=== PATIENT | female | born 1995 | race Caucasian/White ===

== ENCOUNTER 2018-11-11 09:08 | Outpatient (CLI) | payer OTHER, SELFPAY ==
--- NOTE | 2018-11-11 09:03 | DI.RAD_ITS ---
SYMPTOMS/DIAGNOSIS: RT MIDDLE FINGER PAIN RIGHT MIDDLE FINGER: Three views. No priors. No bone or joint abnormality is identified. The soft tissues are unremarkable. IMPRESSION: Negative right middle finger.
== END 2018-11-11 09:28 ==
PROVIDERS: PCP Nurse Practitioner; Visit Provider Physician Assistant
DX: M79.644 Pain in right finger(s) (principal)
CPT/HCPCS: 73140

== ENCOUNTER 2018-11-11 12:35 | Outpatient (CLI) | payer OTHER, SELFPAY ==
[2018-11-11 14:27] LABS: ESR 8 MM/HR (0-20)
[2018-11-12 11:20] LABS: Rheumatoid Factor <8 IU/mL (<12.5)
[2018-11-13 11:10] LABS: ANA Interpretation Negative (NEGAT)
== END 2018-11-11 12:55 ==
PROVIDERS: Physician Assistant; PCP Nurse Practitioner; Visit Provider Student in an Organized Health Care Education/Training Program
DX: M79.644 Pain in right finger(s) (principal)
CPT/HCPCS: 36415; 85652; 86038; 86431

== ENCOUNTER 2019-03-17 10:16 | Outpatient (REF) | payer OTHER, SELFPAY | END 2019-03-17 10:36 | LOC: LBN 10:16 | PROVIDERS: PCP Nurse Practitioner; Visit Provider Nurse Practitioner Women's Health | DX: R30.0 Dysuria (principal) | CPT/HCPCS: 87086 ==

== ENCOUNTER 2020-01-28 07:46 | Outpatient (CLI) | payer OTHER, SELFPAY ==
[2020-01-29 14:50] LABS: COVID-19 RT-PCR UVMMC Result Negative (Negative)
== END 2020-01-28 08:06 ==
PROVIDERS: PCP Nurse Practitioner Family; Visit Provider Otolaryngology Otolaryngology/Facial Plastic Surgery
DX: Z11.59 Encounter for screening for other viral diseases (principal)
CPT/HCPCS: U0003

== ENCOUNTER 2020-01-31 06:06 | Day surgery (SDC) | payer OTHER, SELFPAY ==
[2020-01-31] VITALS (7 sets, daily range): BP systolic 95–134; BP diastolic 43–68; PULSE 74–89; RESP 13–22; TEMP 36.3–36.8; O2SAT 96–100
[2020-01-31] MEDS: Lactated Ringers 1,000 ML 80 ML IV (06:41)
--- NOTE | 2020-01-31 07:20 | W.PM.DSUDISC ---
Discharge Plan Disposition Patient Disposition: HOME Condition: Good Discharge Details Reason For Visit: or Attending Provider: Samuel Grant Primary Care Provider: Stephanie Greene Home Meds and New Rx's Prescriptions: No Action buspirone 5 mg tablet 5 mg PO ONCE PRN (Reason: anxiety) RF: 0 Mirena 1 EACH intrauterine device 1 ea Intrauterine ONCE Qty: 1 RF: 0 acetaminophen [Tylenol Extra Strength] 500 mg Tablet 500 mg PO Q6H PRNRF: 0 Discharge Instructions Additional Instructions: see sheet Activity:: Activity as Tolerated Shower/Bathe:: 24 hours Diet:: As Tolerated DS: Diagnosis Discharge Diagnosis (1) Halitosis: Status: Acute (2) Tonsil stone: Status: Acute
--- NOTE | 2020-01-31 07:22 | ROE_ITS ---
Operative Note Operative Note DATE OF PROCEDURE: 01/31/20 PRE-OP DIAGNOSIS: chronic tonsils stones, halitosis POST-OP DIAGNOSIS: same PROCEDURE: tonsillectomy SURGEON: Samuel Grant ANESTHESIA: GETA ESTIMATED BLOOD LOSS: 1 PATHOLOGY: other (tonsils) COMPLICATIONS: None Patient was transported to: PACU Patient's condition: stable Procedure Description: Patient was brought back to the operating suite in stable condition placed supine operative table, timeout was taken to confirm preparation procedure. Patient was intubated in normal fashion. The table was rotated 90 degrees. Oral McIvor retractor was placed in the oral cavity, there was no evidence of submucosal clefting or bifid uvula. The retractor was suspended with an substitute crossing guard off the Lau stand. There was evidence of 2+ invaginated tonsils with significant halitosis. The curved Allis forceps was used to grab the right superior pole the tonsil after red rubber catheter was used to help suspend the soft palate. Dissection began in the superior pole of the peritonsillar fascia plane, dissection was carried out to the mid and lower pole with final amputation of the tonsil with suction cautery. Exact technique was performed on the left side there was scant bleeding less than 1 cc. Valsalva was performed there was no bleeding. Gastric contents were suctioned. Retractors were removed, there was no injury to dentition or the jaw. Patient was stable to PACU.
--- NOTE | 2020-01-31 07:50 | TONSIL_PTH ---
PATIENT: Elena Ratliff LOC: [facility] U#:[id number] AGE/SX: 24/F ROOM: RE01/31/[address]: Samuel Grant DO : 1995 BED: DIS: 01/31/2020 SPEC #: [id number] RECD: 01/31/20 12:18 STATUS: DANNY REQ #: [id number] СВЕТЛАНА: 01/31/20 07:[address]: Samuel Grant DEPT: Surgical Specimen RECD BY: Kay Dawson ENTERED: 01/31/20 12:19 SP TYPE: TONSIL OTHR DR: Stephanie Greene Tissues: 1 - TONSIL AGE 17 & OVER 2 - TONSIL AGE 17 & OVER Procedures: GROSS AND MICRO LEVEL 3 Comments: [id number]
[2020-01-31] MEDS: Oxymetazolone 0.05% SPRAY 15 ML BTL (07:59)
== END 2020-01-31 10:40 | disposition home or self-care (01) ==
PROVIDERS: PCP Nurse Practitioner Family; Visit Provider Otolaryngology Otolaryngology/Facial Plastic Surgery
PROC: (CPT 42826; principal; 2020-01-31 07:30)
DX: J35.8 Other chronic diseases of tonsils and adenoids (principal); R19.6 Halitosis
CPT/HCPCS: 42826; 88300; 88304; J0131; J1100; J1885; J2001; J2250; J2405

== ENCOUNTER 2020-11-20 11:49 | Outpatient (REF) | payer OTHER, SELFPAY ==
--- NOTE | 2020-11-20 11:30 | PAPFT_PTH ---
PATIENT: Elena Ratliff LOC: [facility] U#:[id number] AGE/SX: 25/F ROOM: RE11/20/[address]: FAUSTINA Faustin : 1995 BED: DIS: 11/20/2020 SPEC #: [id number] RECD: 11/20/20 18:13 STATUS: DANNY REMisa #: [id number] СВЕТЛАНА: 11/20/20 11:[address]: Rosa Johnson DEPT: [facility] Cytology RECD BY: Kay aDwson ENTERED: 11/20/20 18:14 SP TYPE: PAPFT OTHR DR: Stephanie Greene Tissues: 1 - CX/ENDOCX FOR PAP SMEARS Procedures: PAP THIN PREP/[facility] Screening Comments: [id number]
== END 2020-11-20 11:50 | disposition home or self-care (01) ==
LOC: LBN 11:49
PROVIDERS: PCP Nurse Practitioner Family; Visit Provider Nurse Practitioner Family
DX: Z12.4 Encounter for screening for malignant neoplasm of cervix (principal)
CPT/HCPCS: 88142

== ENCOUNTER 2020-11-24 04:00 | Outpatient (CLI) | payer OTHER, SELFPAY ==
--- NOTE | 2020-11-24 08:15 | DI.US_ITS ---
EXAM: US BREAST RT COMPLETE CLINICAL HISTORY: Increased nodulartity and tenderness in R breast,N63.10 TECHNIQUE: Ultrasound performed using standard protocol. COMPARISON: US PELVIS TRANSVAG from 03/07/2017 FINDINGS: Breast ultrasound was performed to evaluate a questionable palpable abnormality of the right breast. Note is made of dense breast tissue in the lateral aspect of the breast corresponding to the main ar ea of interest. There is no mass or cyst identified in this area. Whole breast scanning shows no ev idence of a mass or cyst. IMPRESSION: Negative right breast ultrasound. DATA REPOSITORY:
== END 2020-11-24 04:20 ==
PROVIDERS: PCP Nurse Practitioner Family; Visit Provider Nurse Practitioner Family
DX: R92.8 Other abnormal and inconclusive findings on diagnostic imaging of breast (principal)
CPT/HCPCS: 76642

== ENCOUNTER 2021-08-01 15:52 | Outpatient (REF) | payer OTHER, SELFPAY ==
[2021-08-01 15:34] LABS: *AMPHETAMINES SCREEN URINE Negative (Negative); *BARBITURATES SCREEN URINE Negative (Negative); *BENZODIAZEPINES SCREEN URINE Negative (Negative); Cannabinoids THC Negative (Negative); Cocaine Screen,Urine Negative (Negative); METHADONE URINE SCREEN Negative (Negative); OPIATES URINE SCREEN Negative (Negative)
[2021-08-01 15:36] LABS: Tricyclic Antidepressants Negative (Negative)
[2021-08-02 13:18] LABS: Chlamydia Result Negative (Negative); GC Result Negative (Negative)
[2021-08-04 12:31] LABS: Buprenorphine Negative ng/mL (Cutoff: 5.0); Norbuprenorphine Negative ng/mL (Cutoff: 2.5)
== END 2021-08-01 15:53 | disposition home or self-care (01) ==
LOC: LBN 15:52
PROVIDERS: PCP Nurse Practitioner Family; Visit Provider Advanced Practice Midwife
DX: Z34.91 Encounter for supervision of normal pregnancy, unspecified, first trimester
CPT/HCPCS: 80307; 87491; 87591; 87086; 87480; 87510; 87660

== ENCOUNTER 2021-08-15 02:52 | Outpatient (CLI) | payer OTHER, SELFPAY ==
[2021-08-15 09:21] LABS: Abs Immature Grans 0.08 10^3/uL (0.0-0.06); Absolute Basophil Count 0.02 10^3/uL (0.0-0.2); Absolute Eosinophil Count 0.05 10^3/uL (0.0-0.7); Absolute Monocyte Count 0.83 10^3/uL (0.1-0.8); Absolute Neutrophil Count 8.19 10^3/uL (1.2-6.7); Basophils % 0.2; Eosinophils % 0.5; HCT 39.7 % (36.0-46.0); HGB 13.1 g/dL (11.2-15.7); Immature Grans % 0.7; Kit/Specimen SENT; Lymphocytes % 14.9; MCH 28.9 pg (27.0-33.0); MCV 87.4 fL (80-95); MPV 9.6 fL (8.0-11.0); Monocytes % 7.7; Nucleated RBC 0 %; Platelet Count 198 10^3/uL (130-400); RBC 4.54 10^6/uL (3.93-5.22); RDW-SD 41.2 fL; WBC 10.77 10^3/uL (4.4-10.8)
[2021-08-15 09:33] LABS: Glucose,1 Hr (Glucola) 82 mg/dL (80-140)
[2021-08-16 08:48] LABS: Hepatitis B Surface Ag Negative (Negative)
[2021-08-16 09:34] LABS: HIV-1/2 Ag & Ab Screen Negative (Negative)
[2021-08-16 09:39] LABS: Hepatitis C Ab w Rflx HCV PCR Negative (Negative)
[2021-08-16 14:58] LABS: Syphilis Total Ab w/Reflex Nonreactive (Nonreactive)
[2021-08-16 15:37] LABS: Rubella IgG Ab (UVM) Positive (See Note)
[2021-08-16 15:40] LABS: Varicella IgG Antibody Positive (See Note)
[2021-08-22 18:15] LABS: Result Summary NEGATIVE; Specimen WB Whole Blood
== END 2021-08-15 02:53 | disposition home or self-care (01) ==
LOC: LBO 02:52
PROVIDERS: PCP Nurse Practitioner Family; Visit Provider Advanced Practice Midwife
DX: Z34.01 Encounter for supervision of normal first pregnancy, first trimester
CPT/HCPCS: 82950; 86787; 86803; 86850; 86900; 86901; 87340; 87389; 81220; 85025; 86762; 86780

== ENCOUNTER 2021-08-30 19:36 | Outpatient (REF) | payer OTHER, SELFPAY ==
[2021-08-31 12:31] LABS: COVID-19 RT-PCR UVMMC Result Negative (Negative)
== END 2021-08-30 19:37 | disposition home or self-care (01) ==
LOC: LBN 19:36
PROVIDERS: PCP Nurse Practitioner Family; Visit Provider Obstetrics & Gynecology Gynecology
DX: Z20.822 Contact with and (suspected) exposure to COVID-19 (principal)
CPT/HCPCS: U0003

== ENCOUNTER 2021-09-03 09:25 | Outpatient (REF) | payer OTHER, SELFPAY ==
[2021-09-03 21:11] LABS: COVID-19 RT-PCR UVMMC Result Negative (Negative)
== END 2021-09-03 09:26 | disposition home or self-care (01) ==
LOC: LBN 09:25
PROVIDERS: PCP Nurse Practitioner Family; Visit Provider Obstetrics & Gynecology Gynecology
DX: Z20.822 Contact with and (suspected) exposure to COVID-19 (principal)
CPT/HCPCS: U0003

== ENCOUNTER 2021-10-22 12:38 | Outpatient (CLI) | payer OTHER, SELFPAY ==
[2021-10-24 13:01] LABS: AFP 91.5 ng/mL; Calculated age at EDD 26 years; Cigarette smoking status non-Smoker; GA used in risk estimate Dates estimate; IVF Pregnancy No; Initial or repeat testing Initial testing; Insulin dependent diabetes No; Maternal Weight 259 lbs; Number of Fetuses 1; Physician Phone Number 802-748-7300; Prev Pregnancy w/NTD No; RECOMMENDED FOLLOW UP None.; Results Summary Normal risk
== END 2021-10-22 12:39 | disposition home or self-care (01) ==
LOC: LBO 12:39
PROVIDERS: PCP Nurse Practitioner Family; Visit Provider Obstetrics & Gynecology Gynecology
DX: Z34.92 Encounter for supervision of normal pregnancy, unspecified, second trimester (principal); Z3A.22 22 weeks gestation of pregnancy
CPT/HCPCS: 36415; 82105

== ENCOUNTER 2021-12-04 03:07 | Outpatient (CLI) | payer OTHER, SELFPAY ==
[2021-12-04 08:59] LABS: Lab Add On Test DONE
[2021-12-04 09:02] LABS: HCT 36.4 % (36.0-46.0); MCH 29.1 pg (27.0-33.0); MCV 88.1 fL (80-95); Platelet Count 208 10^3/uL (130-400); RBC 4.13 10^6/uL (3.93-5.22); RDW 13.4 % (11.7-14.6); RDW-SD 43.6 fL; WBC 15.64 10^3/uL (4.4-10.8)
[2021-12-04 09:07] LABS: Glucose,1 Hr (Glucola) 128 mg/dL (80-140)
== END 2021-12-04 03:08 | disposition home or self-care (01) ==
LOC: LBO 03:08
PROVIDERS: Obstetrics & Gynecology Gynecology; PCP Nurse Practitioner Family; Visit Provider Obstetrics & Gynecology
DX: Z34.92 Encounter for supervision of normal pregnancy, unspecified, second trimester (principal); Z3A.27 27 weeks gestation of pregnancy
CPT/HCPCS: 36415; 82950; 85027

== ENCOUNTER 2021-12-07 08:02 | Observation (INO) | payer OTHER, SELFPAY ==
[2021-12-07 08:20] VITALS: BP 126/60; PULSE 91; TEMP 37
[2021-12-07 08:26] VITALS: BP 126/60; PULSE 91
[2021-12-07 08:27] VITALS: BP 126/60; PULSE 91; RESP 14; TEMP 37
--- NOTE | 2021-12-07 11:17 | W.PM.OBNL1 ---
Date of service: 12/07/21 Time of Service: 11:17 Pelvic Exam Pooling: Negative Contractions Monitor Mode: None Fetus A Monitor: External (US) Heart Rate Baseline: 140 Variability: Moderate (6-25 BPM) Categories: Category I FHR Rhythm: Regular Accelerations: 15 X 15 Decelerations: None Amniotic Membrane Status: Intact Assessment and Plan Assessment and plan (1) : Status: Acute Assessment and plan: Patient is at 28 weeks gestation. She is status post fall on her abdomen this. She has no pain, bleeding, contractions, or leaking fluid. She had an appropriate surveillance. With monitoring for 4 hours. Category 1 strip throughout. There are no evidence of contractions. Her blood type is positive. She will continue her normal care. Precautions were given. She will be discharged home today. (2) Status post fall: Status: Acute Objective Temp Pulse Resp BP 98.6 F 91 H 14 126/60 12/07/21 08:27 12/07/21 08:27 12/07/21 08:27 12/07/21 08:27 Subjective Interval history since last seen: Patient seen on the center after having a fall this morning. She landed on her abdomen. She was concerned and overall appropriate. Baby's been moving and active. She has had no cramping. She has no bleeding or leaking fluid. She had a 4-hour monitoring session on the center.
--- NOTE | 2021-12-07 12:59 | W.OBNST ---
Date of service: 12/07/21 Time of Service: 13:00 NST Evaluation Reason for NST Reasons for Nonstress Test: OTHER, SEE COMMENT Reason for NST Other: well being after fall Gestational Age Gestational Age in Weeks and Days: 27 Weeks and 6Days Test and Monitor Explained Test/Monitor Explained: Test Explained and Monitor Explained Vital Signs Blood Pressure: 126/60 Pulse: 91 Temperature: 98.6 F NST Information Date on Monitor: 12/07/21 Time on Monitor: 08:05 Date off Monitor: 12/07/21 Time off Monitor: 12:00 Total Time on Monitor: 235 NST Evaluation Patient States Movement: Present FHR Baseline: 135 Variability: Moderate 6-25 bpm Accelerations: 10x10 Decelerations: None NST Results: Reactive Note NST Note Note: Reactive nonstress test. Category 1 strip over the course of 4 hours. NST Reviewed and Verified by: Rosio Cruz
[2021-12-07 13:01] VITALS: BP 126/60; PULSE 91; TEMP 37
== END 2021-12-07 12:00 | disposition home or self-care (01) ==
PROVIDERS: Admitting Provider Obstetrics & Gynecology; PCP Nurse Practitioner Family; Visit Provider Obstetrics & Gynecology
DX: O26.893 Other specified pregnancy related conditions, third trimester (principal); Z3A.28 28 weeks gestation of pregnancy; W19.XXXA Unspecified fall, initial encounter; Z04.3 Encounter for examination and observation following other accident
CPT/HCPCS: 59025; G0378

== ENCOUNTER 2021-12-11 14:42 | Outpatient (REF) | payer OTHER, SELFPAY ==
[2021-12-13 02:34] LABS: COVID-19 RT-PCR UVMMC Result Negative (Negative)
== END 2021-12-11 14:43 | disposition home or self-care (01) ==
LOC: LBN 14:42
PROVIDERS: PCP Nurse Practitioner Family; Visit Provider Obstetrics & Gynecology
DX: Z20.822 Contact with and (suspected) exposure to COVID-19 (principal)
CPT/HCPCS: U0003

== ENCOUNTER 2021-12-18 15:47 | Outpatient (REF) | payer OTHER, SELFPAY ==
[2021-12-19 00:33] LABS: COVID-19 RT-PCR UVMMC Result Negative (Negative)
== END 2021-12-18 15:48 | disposition home or self-care (01) ==
LOC: LBN 15:47
PROVIDERS: PCP Nurse Practitioner Family; Visit Provider Obstetrics & Gynecology
DX: Z20.822 Contact with and (suspected) exposure to COVID-19 (principal)
CPT/HCPCS: U0003

== ENCOUNTER → 2021-12-28 10:52 | Outpatient (CLI) | payer OTHER, SELFPAY ==
--- NOTE | 2021-12-28 10:15 | DI.US_ITS ---
Exam(s) US OB ANA WEIGHT EXAM: US OB ANA WEIGHT CLINICAL HISTORY: size greater than dates, Z34.03, ana/wt. TECHNIQUE: Transabdominal obstetrical ultrasound was performed. COMPARISON: US US OB 2-3 TRIMESTER from 10/05/2021 FINDINGS: There is a single viable intrauterine gestation with cardiac activity identified-162 bpm The fetus is presently in breech position . Amniotic fluid: There is a normal amount of amniotic fluid with an ANA of 13.8cm. Placental location: The placenta is posterior-fundal, grade 1,with no evidence of placenta previa. Dating parameters place this at approximately 31 weeks and 5 days gestational age, implying KAYLEE of February 25, 2020. BPD measures 31 weeks and 2 days HC measures 31 weeks and 4 days AC measures 31 weeks and 6 days FL measures 31 weeks and 6 days Estimated weight is 1838 gm-4 pounds 1 ounce Fetus is at the 70th percentile on the Hadlock scale. IMPRESSION:: Viable 3rd trimester gestation, as described above. DATA REPOSITORY:
== END ==
PROVIDERS: PCP Nurse Practitioner Family; Visit Provider Obstetrics & Gynecology Gynecology
DX: O26.843 Uterine size-date discrepancy, third trimester (principal); Z3A.31 31 weeks gestation of pregnancy
CPT/HCPCS: 76816

== ENCOUNTER 2022-01-25 00:55 | Outpatient (CLI) | payer OTHER, SELFPAY ==
--- NOTE | 2022-01-25 08:45 | DI.US_ITS ---
Exam(s) US OB ANA WEIGHT EXAM: US OB ANA WEIGHT CLINICAL HISTORY: growth,obesity,O99.213. TECHNIQUE: Transabdominal obstetrical ultrasound performed. COMPARISON: US US OB ANA WEIGHT from 12/28/2021 FINDINGS: Transabdominal obstetrical ultrasound performed. FINDINGS: Number of fetuses: One. position: Breech Placental location: Fundal and posterior placenta. No evidence of previa. BIOMETRIC DATA: BPD: 84 mm = 34 weeks HC: 309 mm = 34 weeks 3 days AC: 306 mm = 34 weeks 4 days FL: 60 mm = 35 weeks 1 day EFW: 2478 grms 40% Composite Age: 34 weeks 4 days EDC: 03/04/2022 Heart Rate: 157BPM Amniotic fluid index: 16.3 cm. Visually, amount of fluid is within normal limits. IMPRESSION: 1. Single live intrauterine gestation as above. 2. Estimated weight is 2478gms. This is the 40 percentile. 3. Amniotic fluid index is 16.3 cm. Visually within normal limits. DATA REPOSITORY:
[2022-01-25 16:08] VITALS: BP 115/56; PULSE 88; TEMP 36.8
[2022-01-25 16:11] VITALS: BP 115/56; PULSE 88
[2022-01-25 16:24] VITALS: BP 114/59; PULSE 86
--- NOTE | 2022-01-30 14:52 | W.OBNST ---
Date of service: 01/30/22 Time of Service: 14:52 NST Evaluation Reason for NST Reasons for Nonstress Test: OTHER, SEE COMMENT Reason for NST Other: well-being. Gestational Age Gestational Age in Weeks and Days: 27 Weeks and 6Days Test and Monitor Explained Test/Monitor Explained: Test Explained, Monitor Explained and Patient Verbalized Understanding Vital Signs Blood Pressure: 115/56 Pulse: 88 Temperature: 98.2 F NST Information Date on Monitor: 01/25/22 Time on Monitor: 16:07 Date off Monitor: 01/25/22 Time off Monitor: 16:33 Total Time on Monitor: 26 NST Interventions: None NST Evaluation Patient States Movement: Present FHR Baseline: 130 Variability: Moderate 6-25 bpm Accelerations: 15x15 Decelerations: None NST Results: Reactive Note NST Note Note: Reviewed NST. I reviewed her BMI prior to her . It was < 40. For that reason I advised pt that repeat NSTs are not warranted at this time. NST Reviewed and Verified by: Radha Delgado
[2022-01-30 14:55] VITALS: BP 115/56; PULSE 88; TEMP 36.8
== END 2022-01-25 16:35 | disposition home or self-care (01) ==
LOC: DI 00:55 → OBS 16:01
PROVIDERS: PCP Nurse Practitioner Family; Visit Provider Obstetrics & Gynecology
DX: O99.213 Obesity complicating pregnancy, third trimester (principal); Z3A.34 34 weeks gestation of pregnancy
CPT/HCPCS: 76816

== ENCOUNTER 2022-01-25 10:45 | Outpatient (CLI) | payer OTHER, SELFPAY ==
--- NOTE | 2022-01-25 18:38 | W.OBNST ---
Date of service: 01/25/22 Time of Service: 17:38 NST Evaluation Reason for NST Reasons for Nonstress Test: OTHER, SEE COMMENT (BMI greater than 40) Gestational Age Gestational Age in Weeks and Days: 34 Weeks and 6Days
== END 2022-01-25 10:46 | disposition home or self-care (01) ==
LOC: BCD 02-07 10:46
PROVIDERS: PCP Nurse Practitioner Family; Visit Provider Obstetrics & Gynecology Gynecology
DX: O26.893 Other specified pregnancy related conditions, third trimester (principal); Z3A.27 27 weeks gestation of pregnancy
CPT/HCPCS: 59025

== ENCOUNTER 2022-01-29 08:19 | Outpatient (CLI) | payer OTHER, SELFPAY | END 2022-01-29 16:19 | LOC: BCD 08:20 → OBS 15:53 | PROVIDERS: PCP Nurse Practitioner Family; Visit Provider Obstetrics & Gynecology ==

== ENCOUNTER 2022-02-01 16:18 | Outpatient (REF) | payer OTHER, SELFPAY ==
[2022-02-01 17:18] LABS: *AMPHETAMINES SCREEN URINE Negative (Negative); *BARBITURATES SCREEN URINE Negative (Negative); *BENZODIAZEPINES SCREEN URINE Negative (Negative); Cannabinoids THC Negative (Negative); Cocaine Screen,Urine Negative (Negative); METHADONE URINE SCREEN Negative (Negative); OPIATES URINE SCREEN Negative (Negative)
[2022-02-01 17:21] LABS: Tricyclic Antidepressants Negative (Negative)
[2022-02-07 09:42] LABS: Buprenorphine Negative ng/mL (Cutoff: 5.0); Norbuprenorphine Negative ng/mL (Cutoff: 2.5)
== END 2022-02-01 16:19 | disposition home or self-care (01) ==
LOC: LBN 16:18
PROVIDERS: PCP Nurse Practitioner Family; Visit Provider Obstetrics & Gynecology
DX: Z34.93 Encounter for supervision of normal pregnancy, unspecified, third trimester (principal); Z3A.35 35 weeks gestation of pregnancy; Z36.85 Encounter for antenatal screening for Streptococcus B
CPT/HCPCS: 80307; 87081

== ENCOUNTER 2022-02-04 08:48 | Outpatient (REF) | payer OTHER, SELFPAY ==
[2022-02-04 09:32] LABS: Source Nasal/Nares
[2022-02-04 14:57] LABS: COVID-19 PCR Negative (Negative)
== END 2022-02-04 08:49 | disposition home or self-care (01) ==
LOC: LBN 08:48
PROVIDERS: PCP Nurse Practitioner Family; Visit Provider Obstetrics & Gynecology
DX: Z20.822 Contact with and (suspected) exposure to COVID-19 (principal); Z01.818 Encounter for other preprocedural examination
CPT/HCPCS: 87635

== ENCOUNTER 2022-02-06 06:00 | Observation (INO) | payer OTHER, SELFPAY ==
--- NOTE | 2022-02-01 16:41 | HPE_ITS ---
Date of service: 02/01/22 Time of Service: 16:41 Assessment and Plan Assessment and plan (1) : Status: Acute (2) Obesity affecting in third trimester, antepartum: Status: Acute (3) Close exposure to COVID-19 virus: Status: Acute (4) Breech presentation with problem: Status: Acute Assessment and plan: Patient will undergo external cephalic version attempt on 02/01/2022. Successful, will proceed as normal with anticipation of spontaneous labor and vaginal delivery. If unsuccessful, scheduled primary section for breech after 39 weeks would be appropriate. Full informed consent was obtained. OB-HPI Labor/Delivery History of Present Illness Reason for Visit: PRE-CASSIDY Chief Complaint: Other (Breech presentation, external cephalic version). KAYLEE Calculator Estimated Delivery Date Method Current WG Current Estimate 03/02/22 LMP (Certain) 35w 6d Other Estimates 02/27/22 Ultrasound #1 36w 2d 03/05/22 Ultrasound #2 35w 3d History of Present Expected Delivery Route/Plan - elects MD HERNANDEZ - Justin, his first child also BG Specific Issues/Plan 1. Elevated BMI. 1st trimester Glucola: 89. Nl 3rd trimester Glucola. 01/25/2022. EFW 43 %. Normal ANA. Breech 2. Constipation, pre-existing . Colace, Miralax, fluids/fiber working OK. 3. Flat nipples, offer third trimester referral to lactation 4. Panorama LR X 5, female. CF neg. Declined SMA. 5. Vaccinated and boosted. Partner Aren vaccinated x1 dose (previously had Covid) 6. choroid plexus cyst seen at 19 wk scan; in setting of nml cfDNA, no f/up indicated Narrative: Patient is a 26-year-old primigravida who will be 36 weeks and 3 days on 02/06/2022. She is known to have a breech presentation on ultrasound at the bedside. vertex is in the left upper quadrant with adequate fluid and posterior placenta. Risk benefits and alternatives of external cephalic version with possible need for emergent section were all described to the patient in full obtained. She is agreeable to attempted external cephalic version today. Informed Consent Informed Consent: Risk,Benefits,Alternatives Discussed and Other (External cephalic version) Review of Systems Constitutional Constitutional: Reports as per HPI and Reports system reviewed and no additional complaints, except as documented Eyes Eyes: Reports system reviewed and no additional complaints, except as documented ENT Ears, Nose, Mouth, and Throat: Reports system reviewed and no additional complaints, except as documented Cardiovascular Cardiovascular: Reports system reviewed and no additional complaints, except as documented, Denies rapid heart rate and Denies irregular heart rhythm Respiratory Respiratory: Reports system reviewed and no additional complaints, except as documented, Denies chest congestion and Denies cough Gastrointestinal Gastrointestinal: Reports system reviewed and no additional complaints, except as documented and Denies abdominal pain Genitourinary Genitourinary: Reports system reviewed and no additional complaints, except as documented Musculoskeletal Musculoskeletal: Reports system reviewed and no additional complaints, except as documented Psychiatric Psychiatric: Reports system reviewed and no additional complaints, except as documented PFSH All Active Problems (Updated 02/01/22 @ 16:45 by Rosio Cruz DO) Breech presentation with problem (Acute) Obesity affecting in third trimester, antepartum (Acute) Encounter for supervision of normal first , third trimester (Acute) Status post fall (Acute) Sciatic pain (Acute) Close exposure to COVID-19 virus (Acute) (Acute) Positive test (Acute) Thrombosed external hemorrhoid (Acute) Medical History (Updated 02/01/22 @ 16:45 by Rosio Cruz DO) Contraception, device intrauterine placed 09/2015. Hemorrhagic cyst of left ovary noted on pelvic us eval of acute episode of L>R sided pelvic pain. Surgical History (Updated 08/01/21 @ 14:16 by Elise Meyer CNM) Hx of tonsillectomy 01/31/2020 Tooth extraction (08/25/12) wisdom teeth Family History (Updated 08/01/21 @ 14:19 by Elise Meyer CNM) Father Degenerative disc disease Hyperlipidemia Hypertension Maternal Grandmother Hypertension Maternal Aunt Diabetes Maternal Uncle Diabetes Paternal Grandfather Celiac disease Social History Smoking/Tobacco Use Status: Never Smoking risk assessment performed?: Yes Alcohol Intake: current Alcohol Intake frequency: a few times a month Drug use: Never Substance use type: does not use current occupation: [employer] Sexually active: Yes Do you think of yourself as: straight/heterosexual What is your relationship status?: living with partner Panel score (0-1 are the most socially isolated patients): 1 Special miri needs: No Seatbelt use: always Do you feel safe at home: Yes Do you feel safe in your relationship?: Yes Victim of physical abuse: No Victim of emotional abuse: No Victim of sexual abuse: No Female Reproductive History Menstrual control method: progestin IUCD History History 1 Para 0 Hx # Term Pregnancies 0 Multiple births 0 Hx # Pregnancies 0 Ectopic pregnancies 0 AB induced 0 Hx Number of Living Children 0 AB spontaneous 0 Meds Allergies and Home Medications Allergies Allergy/AdvReac Type Severity Reaction Status Date / Time erythromycin base AdvReac Verified 02/01/22 15:48 [From Erythrocin] Home Medications Medication Instructions Recorded Confirmed Type acetaminophen 500 mg tablet 500 mg PO Q6H PRN 01/27/20 01/29/22 History (Tylenol Extra Strength) prenat.vits,rex,exc-[id number]-[id number] 1 tab PO DAILY 11/20/20 01/29/22 History fexofenadine 60 mg tablet (Pastora 60 mg PO DAILY PRN 07/17/21 01/29/22 History Allergy) docusate sodium 100 mg capsule 100 mg PO BID PRN 08/01/21 01/29/22 History polyethylene glycol 3350 17 17 g PO DAILY PRN 08/01/21 01/29/22 History gram/dose oral powder aspirin 81 mg tablet,delayed 81 mg PO DAILY 08/29/21 01/29/22 History release (Adult Aspirin Regimen) fluticasone propionate 50 2 spray intranasal DAILY 02/01/22 History mcg/actuation nasal spray,suspension (Flonase Allergy Relief) Exam Physical Exam Vital Signs Reviewed: Yes Constitutional Constitutional: no acute distress Detailed Labor and Delivery Exam Dilation: 0 Effacement (%): 20 station: -4 Position: Other (Breech) Daniels Score: Cervical Points Exam 0 1 2 3 Dilation Closed 1-2cm 3-4 cm 5-6cm Effacement 0-30% 40-50% 60-70% 80% Consistency Firm Medium Soft Station -3 -2 -1,0 +1,+2 Position Posterior Mid Anterior HEENT Exam HEENT Exam: Normal Neck Exam Neck Exam: Normal Respiratory Exam Respiratory Exam: Normal Cardiovascular Exam Cardiovascular Exam: Normal Detailed Extremities Exam Extremities: Present edema (1+ bilateral); Absent Fifi's sign or tenderness Psychiatric Exam Psychiatric Exam: Normal Risk Assessment Risk for Shoulder Dystocia Historical/Initial OB: POSITIVE FOR: Pre- BMI>30; NEGATIVE FOR: Pelvic Abnormality, Previous Shoulder Dystocia or Previous Macrosomia Date/Initial: 08/01/21: Risk for Pre-Eclampsia Yes, if one or more: NEGATIVE FOR: Hx Pre-E/Gest HTN, Chronic HTN, Multiple Gestation, Pre-gestational DM, Renal Disease, Systemic Lupus or APA Syndrome Yes, if 2 or more: POSITIVE FOR: Nulliparity and BMI>30; NEGATIVE FOR: Age>= 35 yrs, >10yr btwn pregnancies, ethinicty, Mother/Sister w/ Pre-E or Previous IUGR Risk for Post- Hemorrhage Initial: NEGATIVE FOR: Multiple Gestation, Previous PPH, Known Clotting Deficiency, Grand Multiparity or Anticoagulation Risks Reviewed Risks Reviewed Upon Admission: Yes
[2022-02-06 06:00] VITALS: BP 116/60; PULSE 98; RESP 20; TEMP 36.7; O2SAT 97
[2022-02-06 06:40] LABS: HGB 12.4 g/dL (11.2-15.7); MCH 29.2 pg (27.0-33.0); MCHC 34.4 % (32.0-36.0); MCV 85 fL (80-95); MPV 10.3 fL (8.0-11.0); Platelet Count 185 10^3/uL (130-400); RBC 4.25 10^6/uL (3.93-5.22); RDW 14.1 % (11.7-14.6); RDW-SD 43.1 fL; WBC 15.11 10^3/uL (4.4-10.8)
[2022-02-06] MEDS: Terbutaline 1 MG/ML VIAL 0.25 MG SC (07:39)
--- NOTE | 2022-02-06 08:21 | PROC.BLANK_ITS ---
Date of service: 02/06/22 Time of Service: 08:21 Version Note Version Note DATE OF PROCEDURE: 02/06/22 PRE-OP DIAGNOSES: Breech presentation POST-OP DIAGNOSES: same (persistant breech) PROCEDURE: Attempted External Cephalic version SURGEON: Rosio Cruz [employer] Analyst: Radha Delgado Complications: None Patient's condition: stable Indications: Breech presentation at 36+ weeks Findings: Mireya breech presentation pre and post procedure Procedure Description: After full informed consent was obtained, patient was placed on the monitor and having a category 1, reactive nonstress test with no particular uterine activity. Ultrasound at bedside confirmed mireya breech presentation with head in the epigastrium and breech low in the pelvis. Back on the maternal left. After subcutaneous dose of terbutaline, 1 time given attempt was made to elevate the breech out of the pelvis and rotate the head in a counterclockwise fashion. First attempt was unsuccessful. Second attempt performed and again unsuccessful. heart tones throughout the procedure were 140. Post procedure also 140 with good accelerations, moderate variability and overall category 1. Patient understands the implication of persistent breech presentation which would be that if at term, baby remains breech she would undergo a primary section. No complications were noted. All questions were answered. Patient will be seen for routine obstetric care in the office in 1 week as scheduled Pre/Post Procedure NST Pre-Procedure NST Time on Monitor: 26
== END 2022-02-06 09:21 | disposition home or self-care (01) ==
PROVIDERS: Admitting Provider Obstetrics & Gynecology; PCP Nurse Practitioner Family; Visit Provider Obstetrics & Gynecology
DX: O32.1XX0 Maternal care for breech presentation, not applicable or unspecified (principal); O99.213 Obesity complicating pregnancy, third trimester; E66.9 Obesity, unspecified; O99.613 Diseases of the digestive system complicating pregnancy, third trimester; O22.43 Hemorrhoids in pregnancy, third trimester; Z3A.36 36 weeks gestation of pregnancy; K59.00 Constipation, unspecified
CPT/HCPCS: 59412; 85027; 86850; 86900; 86901; 87635; G0378

== ENCOUNTER 2022-02-26 03:33 | Outpatient (CLI) | payer OTHER, SELFPAY ==
[2022-02-26 08:40] LABS: Abs Immature Grans 0.12 10^3/uL (0.0-0.06); Absolute Basophil Count 0.04 10^3/uL (0.0-0.2); Absolute Eosinophil Count 0.11 10^3/uL (0.0-0.7); Basophils % 0.3; Eosinophils % 0.8; HCT 37.7 % (36.0-46.0); HGB 13.1 g/dL (11.2-15.7); Immature Grans % 0.8; Lymphocytes % 14.4; MCH 29.6 pg (27.0-33.0); MCHC 34.7 % (32.0-36.0); MCV 85 fL (80-95); MPV 10.5 fL (8.0-11.0); Monocytes % 7.5; Neutrophils % 76.2; Platelet Count 194 10^3/uL (130-400); RBC 4.42 10^6/uL (3.93-5.22); RDW-SD 43.5 fL; WBC 14.21 10^3/uL (4.4-10.8)
[2022-02-26 08:47] LABS: Absolute Lymphocyte Count 2.05 10^3/uL (1.2-3.4); Absolute Monocyte Count 1.07 10^3/uL (0.1-0.8); Absolute Neutrophil Count 10.83 10^3/uL (1.2-6.7)
[2022-02-26 09:08] LABS: Source Nasal/Nares
[2022-02-26 13:58] LABS: COVID-19 PCR Negative (Negative)
== END 2022-02-26 03:34 | disposition home or self-care (01) ==
LOC: LBO 03:34
PROVIDERS: PCP Nurse Practitioner Family; Visit Provider Obstetrics & Gynecology
DX: O32.1XX0 Maternal care for breech presentation, not applicable or unspecified (principal); Z3A.39 39 weeks gestation of pregnancy; Z01.818 Encounter for other preprocedural examination; Z01.812 Encounter for preprocedural laboratory examination; Z20.822 Contact with and (suspected) exposure to COVID-19
CPT/HCPCS: 36415; 86850; 86900; 86901; 87635; 85025

== ENCOUNTER 2022-02-26 03:34 | Outpatient (CLI) | payer OTHER, SELFPAY | END 2022-02-26 03:35 | disposition home or self-care (01) | LOC: LBO 03:34 | PROVIDERS: PCP Nurse Practitioner Family; Visit Provider Obstetrics & Gynecology ==

== ENCOUNTER 2022-02-27 06:00 | Inpatient (IN) | payer OTHER, SELFPAY ==
--- NOTE | 2022-02-26 11:28 | W.ANESPRE ---
General Info Date of Service Date Performed: 02/27/22 Height: 5 ft 6 in Weight: 127 kg Body Mass Index (BMI): 45.1 Surgical Procedure: Operation Date: 02/27/22 07:40 Proposed Procedure Side Surgeon p Section Rosio Cruz DO Meds Allergies and Home Medications Allergies Allergy/AdvReac Type Severity Reaction Status Date / Time erythromycin base AdvReac Verified 02/26/22 06:43 [From Erythrocin] Home Medication Medication Instructions Recorded acetaminophen 500 mg tablet 500 mg PO Q6H PRN 01/27/20 (Tylenol Extra Strength) prenat.vits,rex,ics-ynzf-svjwc 1 tab PO DAILY 11/20/20 fexofenadine 60 mg tablet (Pastora 60 mg PO DAILY PRN 07/17/21 Allergy) docusate sodium 100 mg capsule 100 mg PO BID PRN 08/01/21 polyethylene glycol 3350 17 17 g PO DAILY PRN 08/01/21 gram/dose oral powder aspirin 81 mg tablet,delayed 81 mg PO DAILY 08/29/21 release (Adult Aspirin Regimen) fluticasone propionate 50 2 spray intranasal DAILY 02/01/22 mcg/actuation nasal spray,suspension (Flonase Allergy Relief) Current Visit Medications: Current Medications Generic Name Dose Route Start Last Admin Trade Name Freq PRN Reason Stop Dose Admin Citric Acid/Sodium Citrate 30 ml 02/27/22 06:00 Sodium Citrate 30 Ml Cup PO PREOP IFEANYI Sodium Chloride 500 mls @ 0 mls/hr 02/27/22 06:00 Saline 500ml Bag IV PRN PRN As Directed Ringer's Solution 1,000 mls @ 200 mls/hr 02/27/22 06:00 IV INFUSION IFEANYI Cefazolin Sodium/Dextrose 2 gm in 50 mls @ 100 mls/hr 02/27/22 09:00 Ancef Duplex IVPB PREOP IFEANYI Azithromycin 500 mg/ Sodium 250 mls @ 250 mls/hr 02/27/22 06:00 Chloride IVPB PREOP IFEANYI IV Miscellaneous Supplies 1 each 02/27/22 06:45 Iv Access IV DIRECTED IFEANYI Sodium Chloride 0 ml 02/27/22 06:00 Normal Saline Flush 10 Ml Syr IVP PRN PRN PFSH Active Problems Active Problems: Problem Status Onset Code Group beta Strep positive B95.1 Breech presentation with problem O32.1XX0 Obesity affecting in third trimester, antepartum O99.213 Encounter for supervision of normal first , third trimester Z34.03 Status post fall Z91.81 Sciatic pain M54.30 Close exposure to COVID-19 virus Z20.822 Z34.90 Positive test Z32.01 Thrombosed external hemorrhoid K64.5 Medical History Medical History (Updated 02/05/22 @ 09:09 by Rosio Cruz DO) Contraception, device intrauterine placed 09/2015. Hemorrhagic cyst of left ovary noted on pelvic us eval of acute episode of L>R sided pelvic pain. Surgical History Surgical History (Updated 08/01/21 @ 14:16 by Elise Meyer CNM) Hx of tonsillectomy 01/31/2020 Tooth extraction (08/25/12) wisdom teeth Tobacco Smoking/Tobacco Use Status: Never Alcohol Alcohol Intake: current Alcohol intake frequency: a few times a month Substance Use Substance use: Never Substance use type: does not use Prental History History 1 Para 0 Hx # Term Pregnancies 0 Multiple births 0 Hx # Pregnancies 0 Ectopic pregnancies 0 AB induced 0 Hx Number of Living Children 0 AB spontaneous 0 Vital Signs and Lab Results Vital Signs Most Recent Vital Signs in EMR: Temp Pulse Resp BP Pulse Ox 37.3 C 99 H 18 133/71 96 02/27/22 06:21 02/27/22 06:21 02/27/22 06:21 02/27/22 06:21 02/27/22 06:21 Lab Results Blood Type / Crossmatch: Patient ABO/Rh AB Positive 02/26/22 Antibody Screen NEGATIVE 02/26/22 Complete Blood Count: White Blood Count 14.21 10^3/uL (4.4-10.8) H 02/26/22 08:19 Red Blood Count 4.42 10^6/uL (3.93-5.22) 02/26/22 08:19 Hemoglobin 13.1 g/dL (11.2-15.7) 02/26/22 08:19 Hematocrit 37.7 % (36.0-46.0) 02/26/22 08:19 Platelet Count 194 10^3/uL (130-400) 02/26/22 08:19 Complete Metabolic Panel: No Data to Display Liver Function Panel: No Data to Display Coagulation Panel: No Data to Display Cardiac Panel: No Data to Display Arterial Blood Gas: No Data to Display Venous Blood Gas: No Data to Display Pancreas Panel: No Data to Display Thyroid Panel: No Data to Display Infectious Disease: Coronavirus (COVID-19)(PCR) Negative (Negative) 02/26/22 09:00 Coronavirus 2019 Source Nasal/Nares 02/26/22 09:00 Blood Cultures: No Data to Display Toxicology Panel: Urine Amphetamines Screen Negative (Negative) 02/01/22 16:00 Urine Benzodiazepines Screen Negative (Negative) 02/01/22 16:00 Urine Barbiturates Screen Negative (Negative) 02/01/22 16:00 Urine Cocaine Screen Negative (Negative) 02/01/22 16:00 Urine Methadone Screen Negative (Negative) 02/01/22 16:00 Urine Opiates Screen Negative (Negative) 02/01/22 16:00 Ur Tricyclic Antidepressants Screen Negative (Negative) 02/01/22 16:00 Ur Tetrahydrocannabinol (THC) Scrn Negative (Negative) 02/01/22 16:00 Panel: No Data to Display Anesthesia Assessment and Plan Anesthesia History Personal History: No History of Anesthesia Complications Family History: No Family History of Anesthesia Complications Exercise Tolerance Exercise Tolerance: Metabolic Equivalents>4 Cardiac & Pulmonary Exam Cardiac Exam: Normal S1/S2 Heart Sounds Pulmonary Exam: Clear Bilateral Breath Sounds Implantable Cardiac Device Does patient have a Pacemaker or an ICD?: No Airway Exam Known Difficult Airway: No Mallampati Class: 3 Mouth Opening: Normal (> 3cm) Thyromental Distance: Greater than 3 cm Neck Range of Motion: Full ROM Neck Circumference: Normal Teeth Condition: Normal Dentition ASA Classification ASA Score: ASA 3 Emergency Case?: No NPO Status NPO Status: NPO Clears >2 hours, Solids >8 hours Status Status: Other Anesthesia Plan Resuscitation Status: Full Code Anesthesia Technique: Spinal Anesthesia Airway Planned: Natural Airway Pain Management: Intrathecal Analgesia Monitors Used: Standard Monitors Preoperative Comments:: 26 yo f for c section due to breech presentation. Sig PMHx: denies major. Plan: spinal with IT morphine for post op pain control.
[2022-02-27] VITALS (17 sets, daily range): BP systolic 104–133; BP diastolic 45–71; PULSE 66–99; RESP 16–20; TEMP 36.6–37.3; O2SAT 95–98; BMI 45.1
[2022-02-27] MEDS: AZITHROMYCIN 500 MG in Normal Saline 250 ML 250 MG IVPB (06:44)
[2022-02-27] MEDS: Lactated Ringers 1,000 ML 200 ML IV (06:45)
[2022-02-27] MEDS: Sodium Citrate 30 ML CUP PO (06:45)
[2022-02-27] MEDS: Lactated Ringers 1,000 ML 30 ML IV (07:34)
[2022-02-27] MEDS: ceFAZolin 2 GM/50 ML BAG IVPB (07:42)
[2022-02-27] MEDS: Oxytocin/Normal Saline 30 UNIT/500 ML BAG 95 UNITS IV (08:06)
--- NOTE | 2022-02-27 08:44 | W.PM.OBCSECT ---
Date of service: 02/27/22 Time of Service: 08:44 Operative Note Operative Note Delivery Method: Scheduled (Breech at term) and Primary NTSV>37 Weeks: No DATE OF PROCEDURE: 02/27/22 PRE-OP DIAGNOSES: Term , Breech POST-OP DIAGNOSES: same PROCEDURE: Primary low transverse section for breech Assisting Surgeon: Rosio Cruz Critical Care Cns: Radha Delgado Anesthesia: local and spinal Estimated blood loss (mL): 500 Pathology: none sent Complications: None Patient was transported to: floor Patient's condition: stable Indications: Term , breech presentation, failed external cephalic version Findings: Viable female infant delivered from the mireya breech presentation. Normal ovaries, tubes, and uterus. Small, 3 cm anterior subserosal fibroid Procedure Description: After routine care, and attempted external cephalic version at 37 weeks which was unsuccessful, patient was taken the operating room at term, after 39 weeks for primary section. Risk benefits and alternatives have been previously discussed with the patient in full informed consent was obtained. She was taken the operating suite with an IV running where she is placed in seated position and spinal anesthesia administered, tested and found to be at. She was placed in dorsal supine position with leftward tilt and quarter percent Marcaine used to infiltrate Pfannenstiel skin incision area. Pfannenstiel skin incision was made carried down to the underlying fascia which was nicked in the midline and extended laterally. The rectus muscles were identified split in the midline and peritoneum identified, tented up and entered sharply. The peritoneal incision was stretched superiorly and inferiorly and the bladder blade inserted. The vesicouterine peritoneum identified tented up and the bladder flap created. Bladder blade was then reinserted and a low transverse uterine incision was made in the midline and extended bluntly laterally. The breech was delivered through the incision to the point that the shoulders were identified. The right arm was swept across the chest and delivered followed by the left arm. The head was delivered atraumatically through the incision. There is evidence of nuchal cord that was loose x1. Three-vessel cord was noted clamped x2 and cut and the infant was handed off to the waiting rubber press tender. At this point cord blood sample was obtained and the placenta delivered spontaneously. The uterus was then exteriorized and cleared of all clot and debris. The uterine incision was closed using 0 Monocryl suture in a 2 layer closure, first being running locked, second layer being imbricating. The uterine incision was inspected and found to be hemostatic. Uterus was then returned to the abdomen abdomen irrigated with copious amounts of normal saline. At the fascial incision was then closed using 0 Vicryl suture and subcutaneous tissue irrigated and inspected and found to be hemostatic. The interspace was reapproximated with 3-0 Vicryl suture in a simple interrupted fashion. Skin edge was reapproximated with 4-0 undyed Monocryl and Steri-Strips were placed. Sterile dressing was placed. Uterus was found to be firm after the procedure. Cantu catheter in place draining clear yellow urine. Patient was then taken to the center in stable condition. Cantu catheter was draining clear yellow urine. Findings: Delivery of a viable female from the breech presentation. Small anterior subserosal fibroid. Normal-appearing uterus, tubes, ovaries EBL: 500 cc Complications: None apparent Pathology: None
[2022-02-27] MEDS: Naloxone 0.4 MG/ML VIAL IVP (09:13)
[2022-02-27] MEDS: Ketorolac 15 MG/ML VIAL IVP (09:15)
[2022-02-27] MEDS: Lactated Ringers 1,000 ML 120 ML IV ×3 (10:50→19:39)
--- NOTE | 2022-02-27 12:23 | W.ANESPOSTOP ---
Postoperative Evaluation Date, Time and Location Date Performed: 02/27/22 Time Performed: 12:23 Patient Location: Obstetrics Vital Signs Most Recent Imported Vital Signs: Most Recent Vital Signs Temp Pulse Resp BP Pulse Ox 36.6 C 85 16 106/56 L 96 02/27/22 10:40 02/27/22 11:40 02/27/22 11:40 02/27/22 11:40 02/27/22 11:40 Assessment Mental Status: Awake (Alert & Oriented to Patient Baseline) Airway and Respiratory Function: Patent airway with normal (patient baseline) respiratory exam Cardiovascular Function: Hemodynamically Stable Hydration Status: Adequately Hydrated Nausea & Vomiting: No Nausea or Vomiting Pain: Pain is tolerable per patient Peripheral Nerve Block: Patient did not receive a nerve block
[2022-02-27] MEDS: Ketorolac 30 MG/ML VIAL IVP ×2 (15:11→21:01)
--- NOTE | 2022-02-27 15:15 | OBPPV_ITS ---
Date of service: 02/27/22 Time of Service: 15:16 Assessment and Plan Assessment and plan (1) Status post primary low transverse section: Status: Acute Assessment and plan: Postop day 0 status post primary low transverse section for breech. Doing well. Anticipate routine postoperative care and course. Subjective Subjective Interval history: Patient seen and examined post operative day #0. She is doing well. Movement and station her lower extremities are spinal. All questions were answered. [place] baby status: Doing well and Nursing well Exam Physical Exam Vital signs: Temp Pulse Resp BP Pulse Ox 97.9 F 88 16 109/56 L 96 02/27/22 10:40 02/27/22 12:50 02/27/22 11:40 02/27/22 12:50 02/27/22 11:40 Constitutional Constitutional: no acute distress
[2022-02-28] MEDS: Ketorolac 30 MG/ML VIAL IVP ×2 (02:59→08:37)
[2022-02-28 03:02] VITALS: BP 113/59; PULSE 63; RESP 20; TEMP 36.7; O2SAT 98
[2022-02-28] MEDS: Lactated Ringers 1,000 ML 120 ML IV (03:11)
[2022-02-28 06:52] LABS: Abs Immature Grans 0.08 10^3/uL (0.0-0.06); Absolute Basophil Count 0.03 10^3/uL (0.0-0.2); Absolute Eosinophil Count 0.11 10^3/uL (0.0-0.7); Absolute Lymphocyte Count 1.79 10^3/uL (1.2-3.4); Absolute Monocyte Count 1.01 10^3/uL (0.1-0.8); Basophils % 0.2; Eosinophils % 0.7; HCT 33.7 % (36.0-46.0); HGB 11.1 g/dL (11.2-15.7); Immature Grans % 0.5; Lymphocytes % 11.8; MCH 28.8 pg (27.0-33.0); MCHC 32.9 % (32.0-36.0); MCV 87 fL (80-95); MPV 10.4 fL (8.0-11.0); Monocytes % 6.7; Neutrophils % 80.1; Platelet Count 178 10^3/uL (130-400); RBC 3.86 10^6/uL (3.93-5.22); RDW 14.1 % (11.7-14.6); RDW-SD 44.9 fL; WBC 15.13 10^3/uL (4.4-10.8)
[2022-02-28 06:55] LABS: Absolute Neutrophil Count 12.12 10^3/uL (1.2-6.7)
[2022-02-28 09:17] VITALS: BP 112/54; PULSE 74; RESP 16; TEMP 36.8; O2SAT 97
[2022-02-28] MEDS: Docusate Sodium 100 MG CAP PO (09:24)
--- NOTE | 2022-02-28 12:17 | W.PM.OBPNV1 ---
Date of service: 02/28/22 Time of Service: 12:17 Assessment and Plan Assessment and plan (1) Status post primary low transverse section: Status: Acute Assessment and plan: Postop day 1 status post primary low transverse section for breech presentation after failed external cephalic version. Doing well. Continue routine postoperative care. Anticipate discharge home tomorrow. All questions answered. Subjective Subjective Interval history: Patient seen and examined this afternoon doing well. Ambulating without difficulty. Tolerating a regular diet. Vital signs are stable. Hemoglobin is stable at 11.1. Breast-feeding without difficulty. Patient's Mood: Good baby status: Doing well and Nursing well feeding status: Exclusively breast feeding Exam Physical Exam Vital signs: Temp Pulse Resp BP Pulse Ox 98.2 F 74 16 112/54 L 97 02/28/22 09:17 02/28/22 09:17 02/28/22 09:17 02/28/22 09:17 02/28/22 09:17 Constitutional Constitutional: no acute distress Neck Exam Neck Exam: Normal Respiratory Exam Respiratory Exam: Normal Cardiovascular Exam Cardiovascular Exam: Normal Abdominal Exam Abdomen: Tender Fundal Exam Fundus: Below Umbilicus and Firm Extremities Exam Extremity Exam: Normal; negative Calf Tenderness or Edema Psychiatric Exam Psychiatric Exam: Normal Results Hemoglobin/Hematocrit: Hgb 11.1 g/dL (11.2-15.7) L D 02/28/22 06:34 Hct 33.7 % (36.0-46.0) L 02/28/22 06:34 Abnormal Lab Findings: Abnormal Labs 02/28/22 06:34 WBC 15.13 H RBC 3.86 L Hgb 11.1 L D Hct 33.7 L Absolute Neutrophils 12.12 H Absolute Monocytes 1.01 H
[2022-02-28] MEDS: Acetaminophen 325 MG TAB 650 MG PO (12:48)
[2022-02-28] MEDS: Ibuprofen 600 MG TAB PO (15:05)
[2022-02-28] MEDS: oxyCODONE 5 mg/Acetaminophen 325 mg TAB PO ×2 (17:02→21:35)
[2022-02-28 20:50] VITALS: BP 117/61; PULSE 77; RESP 18; TEMP 36.8; O2SAT 97
[2022-03-01] MEDS: Docusate Sodium 100 MG CAP PO (01:53)
[2022-03-01] MEDS: Ibuprofen 600 MG TAB PO ×2 (01:53→10:19)
[2022-03-01] MEDS: oxyCODONE 5 mg/Acetaminophen 325 mg TAB PO (01:54)
--- NOTE | 2022-03-01 08:01 | OBPPV_ITS ---
Date of service: 03/01/22 Time of Service: 08:01 Assessment and Plan Assessment and plan (1) Status post primary low transverse section: Status: Acute Assessment and plan: Postoperative day #2 status post primary low-transverse section for breech presentation. Attempted external cephalic version at 37 weeks was unsuccessful. She had an uncomplicated, routine postoperative care. She will be discharged home today ambulating, tolerating regular diet and oral pain medication with stable vital signs. She will be seen back in the office in 2 and 6 weeks. All questions were answered today. Subjective Subjective Interval history: Patient seen and examined this morning. Doing well. States she does have some right-sided burning discomfort. She is tolerating a regular diet and oral pain medication and ambulating without difficulty. Patient's Mood: Good, slightly tearful though patient states these are tears of [place] today. baby status: Doing well and Nursing well [place] feeding status: Exclusively breast feeding Exam Physical Exam Vital signs: Temp Pulse Resp BP Pulse Ox 98.2 F 77 18 117/61 97 02/28/22 20:50 02/28/22 20:50 02/28/22 20:50 02/28/22 20:50 02/28/22 20:50 Constitutional Constitutional: no acute distress HEENT Exam HEENT Exam: Normal Neck Exam Neck Exam: Normal Respiratory Exam Respiratory Exam: Normal Cardiovascular Exam Cardiovascular Exam: Normal Abdominal Exam Comments: Soft and nontender. Incision clean dry intact. Steri-Strips are in place. No surrounding erythema, ecchymosis, or induration. Fundal Exam Fundus: Below Umbilicus and Firm Extremities Exam Extremity Exam: Calf Tenderness and Edema (2+ bilateral symmetric) Skin Exam Skin Exam: Normal Neurological Exam Neurological Exam: Normal Psychiatric Exam Psychiatric Exam: Normal Results Hemoglobin/Hematocrit: Hgb 11.1 g/dL (11.2-15.7) L D 02/28/22 06:34 Hct 33.7 % (36.0-46.0) L 02/28/22 06:34 Abnormal Lab Findings: Abnormal Labs 02/28/22 06:34 WBC 15.13 H RBC 3.86 L Hgb 11.1 L D Hct 33.7 L Absolute Neutrophils 12.12 H Absolute Monocytes 1.01 H
--- NOTE | 2022-03-01 08:09 | W.PM.OBDISCH ---
Date of service: 03/01/22 Time of Service: 08:09 DS: Diagnosis Discharge Diagnosis (1) Status post primary low transverse section: Status: Acute Asessment and Plan: Patient is postoperative day #2 status post primary low transverse section for breech. She is doing well, breast-feeding her baby girl. She will be discharged home today with routine postoperative care. She will be seen back in the office in 2 and 6 weeks. Discharge Plan Disposition Patient Disposition: HOME Condition: Good Discharge Details Reason For Visit: Delivery, breech Admit Date/Time: 02/27/22 06:00 Admit Provider: Rosio Cruz Attending Provider: Rosio Cruz Primary Care Provider: Stephanie Greene Hospital Course Hospital Course: Patient underwent a primary low-transverse section at 39+ weeks gestation for breech presentation. She had an uncomplicated surgical procedure, uncomplicated postoperative course and was discharged home postoperative day #2 ambulating tolerating regular diet and oral pain medication with stable vital signs. She is breast-feeding her baby and doing well with this will be seen back in the office in 2 weeks and 6 weeks time. Home Meds and New Rx's Prescriptions: New ibuprofen 800 mg tablet 800 mg PO Q8H Qty: 60 1RF oxycodone-acetaminophen [Percocet] 5-325 mg tablet 1 tab PO TID PRNQty: 10 0RF docusate sodium [Colace] 100 mg capsule 100 mg PO BID Qty: 60 0RF Continued prenat.vits,rex,rwi-gynl-hxgnu Tablet 1 tab PO DAILY fexofenadine [Pastora Allergy] 60 mg tablet 60 mg PO DAILY PRN docusate sodium 100 mg capsule 100 mg PO BID PRN polyethylene glycol 3350 17 gram/dose powder 17 g PO DAILY PRN fluticasone propionate [Flonase Allergy Relief] 50 mcg/actuation spray,suspension 2 spray intranasal DAILY Rx Instructions: administer into each nostril acetaminophen [Tylenol Extra Strength] 500 mg Tablet 500 mg PO Q6H PRN Discontinued aspirin [Adult Aspirin Regimen] 81 mg tablet,delayed release (DR/EC) 81 mg PO DAILY Discharge Instructions Stand Alone Forms: BC Discharge Instruc Activity:: Pelvic rest, no heavy lif Equipment/Supplies:: No Equipment Needed Diet:: As Tolerated Discharge Orders Discharge Orders: Discharge Order (Routine); Ordered 03/01/22 Ordered By: Rosio Cruz OB:DS Summary Summary Episiotomy Description: None Laceration Description: None Laceration Extension: N/A Contraception Discussed Contraception Discussed: Yes Contraceptive Plan: Undecided, Gender-Baby A: Female weight: 8 lb 5.159 oz Status at Discharge Functional status at discharge: independent ambulation Overall status at discharge: patient is progressing back to baseline Mental Status: mental status grossly normal Speech and Movement: speech and movement normal Mood: congruent mood Affect: normal affect Exam Physical Exam Vital signs: Temp Pulse Resp BP Pulse Ox 98.2 F 77 18 117/61 97 02/28/22 20:50 02/28/22 20:50 02/28/22 20:50 02/28/22 20:50 02/28/22 20:50 Vital Signs Reviewed: Yes Constitutional Comments: Please see physical exam from progress note dated 03/01/2022 [facility] All Active Problems Status post primary low transverse section (Acute) Group beta Strep positive (Acute) Breech presentation with problem (Acute) Obesity affecting in third trimester, antepartum (Acute) Sciatic pain (Acute) (Acute) Thrombosed external hemorrhoid (Acute) Medical History Close exposure to COVID-19 virus Contraception, device intrauterine placed 09/2015. Encounter for supervision of normal first , third trimester Hemorrhagic cyst of left ovary noted on pelvic us eval of acute episode of L>R sided pelvic pain. Status post fall Surgical History Hx of tonsillectomy 01/31/2020 Tooth extraction (08/25/12) wisdom teeth Family History Father Degenerative disc disease Hyperlipidemia Hypertension Maternal Grandmother Hypertension Maternal Aunt Diabetes Maternal Uncle Diabetes Paternal Grandfather Celiac disease Social History Smoking/Tobacco Use Status: Never Smoking risk assessment performed?: Yes Alcohol Intake: former Drug use: Never Substance use type: does not use current occupation: [employer] Sexually active: Yes Do you think of yourself as: straight/heterosexual What is your relationship status?: living with partner Panel score (0-1 are the most socially isolated patients): 1 Special miri needs: No Seatbelt use: always Do you feel safe at home: Yes Do you feel safe in your relationship?: Yes Victim of physical abuse: No Victim of emotional abuse: No Victim of sexual abuse: No Female Reproductive History Menstrual control method: progestin IUCD History History 1 Para 0 Hx # Term Pregnancies 0 Multiple births 0 Hx # Pregnancies 0 Ectopic pregnancies 0 AB induced 0 Hx Number of Living Children 0 AB spontaneous 0 DS: Data Vitals/I&O Vitals and I&O: Vital Signs Temperature 98.2 F 02/28/22 20:50 Pulse 77 02/28/22 20:50 Pulse Rhythm Regular 02/28/22 21:00 Respiratory Rate 18 02/28/22 20:50 Blood Pressure 117/61 02/28/22 20:50 Blood Pressure Mean 79 02/28/22 20:50 Pulse Oximetry 97 02/28/22 20:50 Oxygen Delivery Method Room Air 02/27/22 09:30 Oxygen Flow Rate 0 02/27/22 07:20 Pain Level 6 03/01/22 01:54 Intake & Output 02/28/22 02/28/22 03/01/22 11:59 23:59 11:59 Intake Total 1662 / 1662 Output Total 4025 / 4025 Balance -2363 / -2363 Intake: IV 1662 / 1662 Output: Urine 4025 / 4025 Other: Urine Color Bright Red
[2022-03-01 08:30] VITALS: BP 108/76; PULSE 74; RESP 14; TEMP 37.2
[2022-03-01] MEDS: Acetaminophen 325 MG TAB 650 MG PO (10:19)
== END 2022-03-01 11:35 | disposition home or self-care (01) | DRG 788 ==
PROVIDERS: Admitting Provider Obstetrics & Gynecology; PCP Nurse Practitioner Family; Visit Provider Obstetrics & Gynecology
PROC: 10D00Z1 Extraction of Products of Conception, Low, Open Approach (ICD-10-PCS; CPT 59514; principal; 2022-02-27 07:30)
DX: O32.1XX0 Maternal care for breech presentation, not applicable or unspecified (principal); Z37.0 Single live birth; O34.13 Maternal care for benign tumor of corpus uteri, third trimester; D25.2 Subserosal leiomyoma of uterus; O99.62 Diseases of the digestive system complicating childbirth; Z3A.39 39 weeks gestation of pregnancy; K59.00 Constipation, unspecified
CPT/HCPCS: 59514; 36415; 85025; J0456; J0690; J1885; J2310; J2370; J2405; J3010

== ENCOUNTER 2022-07-24 15:41 | Outpatient (REF) | payer OTHER, SELFPAY ==
[2022-07-24 17:12] LABS: COVID-19 PCR Negative (Negative); Influenza A PCR Negative (Negative); Influenza B PCR Negative (Negative)
[2022-07-24 17:21] LABS: Source Nasopharynx
[2022-07-24 18:01] LABS: RSV PCR Positive (Negative)
== END 2022-07-24 15:42 | disposition home or self-care (01) ==
LOC: LBN 15:41
PROVIDERS: PCP Nurse Practitioner Family; Visit Provider Obstetrics & Gynecology
DX: J00 Acute nasopharyngitis [common cold] (principal)
CPT/HCPCS: 87637

== ENCOUNTER 2023-01-16 16:04 | Outpatient (REF) | payer OTHER, SELFPAY ==
[2023-01-16 16:51] LABS: Hemoglobin A1C 5.5 % (<5.7)
[2023-01-16 16:59] LABS: Calculated LDL 129 mg/dL (<100); Cholesterol 219 mg/dL (<200); HDL Cholesterol 41 mg/dL (40-60); TSH (W/Ref FT4) 2.55 uIU/mL (0.36-3.74); Triglyceride 248 mg/dL (<150)
== END 2023-01-16 16:05 | disposition home or self-care (01) ==
LOC: LBN 16:04
PROVIDERS: PCP Nurse Practitioner Family; Visit Provider Obstetrics & Gynecology Gynecology
DX: Z00.00 Encounter for general adult medical examination without abnormal findings (principal); E66.9 Obesity, unspecified; Z13.1 Encounter for screening for diabetes mellitus; Z13.29 Encounter for screening for other suspected endocrine disorder; Z13.220 Encounter for screening for lipoid disorders
CPT/HCPCS: 80061; 83036; 84443

== ENCOUNTER 2023-11-18 12:08 | Outpatient (CLI) | payer OTHER, SELFPAY ==
[2023-11-18 12:34] LABS: Abs Immature Grans 0.01 10^3/uL (0.0-0.06); Absolute Basophil Count 0.03 10^3/uL (0.0-0.2); Absolute Eosinophil Count 0.07 10^3/uL (0.0-0.7); Absolute Lymphocyte Count 2.14 10^3/uL (1.2-3.4); Absolute Monocyte Count 0.65 10^3/uL (0.1-0.8); Basophils % 0.4; Eosinophils % 0.8; HCT 44.4 % (36.0-46.0); HGB 14.6 g/dL (11.2-15.7); Immature Grans % 0.1; Lymphocytes % 25.5; MCH 28.7 pg (27.0-33.0); MCHC 32.9 % (32.0-36.0); MCV 87 fL (80-95); MPV 9.6 fL (8.0-11.0); Monocytes % 7.7; Neutrophils % 65.5; Platelet Count 206 10^3/uL (130-400); RBC 5.08 10^6/uL (3.93-5.22); RDW 13.1 % (11.7-14.6); RDW-SD 42.2 fL
[2023-11-18 13:13] LABS: Hemoglobin A1C 5.1 % (<5.7)
[2023-11-18 13:33] LABS: ALT 33 U/L (14-59); AST 16 U/L (15-37); Albumin 4.4 g/dL (3.4-5.0); Alkaline Phosphatase 59 U/L (46-116); Anion Gap 10.5 mmol/L (3-11); BUN 20 mg/dL (7-18); Bilirubin, Total 0.5 mg/dL (0.2-1.0); CO2 25.5 mmol/L (21.0-32.0); CREATININE 0.8 mg/dL (0.55-1.02); Calcium 9.4 mg/dL (8.5-10.1); Calculated LDL 165 mg/dL (<100); Chloride 103 mmol/L (98-107); Cholesterol 219 mg/dL (<200); Glucose 85 mg/dL (74-106); HDL Cholesterol 44 mg/dL (40-60); Potassium 4.3 mmol/L (3.5-5.1); Sodium 139 mmol/L (136-145); TSH (W/Ref FT4) 0.91 uIU/mL (0.36-3.74); Total Protein 8.1 g/dL (6.4-8.2); Triglyceride 53 mg/dL (<150); Vitamin B12 409 pg/mL (193-986)
[2023-11-18 14:35] LABS: Vitamin D 25 Total 33.7 ng/mL (30-100)
== END 2023-11-18 12:09 | disposition home or self-care (01) ==
LOC: LBO 12:08
PROVIDERS: PCP Nurse Practitioner Family; Visit Provider Nurse Practitioner Family
DX: E55.9 Vitamin D deficiency, unspecified (principal); D51.3 Other dietary vitamin B12 deficiency anemia; I10 Essential (primary) hypertension; E78.5 Hyperlipidemia, unspecified
CPT/HCPCS: 36415; 80053; 80061; 82306; 82607; 83036; 84443; 85025

== ENCOUNTER 2024-04-08 15:54 | Outpatient (REF) | payer OTHER, SELFPAY ==
--- NOTE | 2024-04-08 15:30 | PAPFT_PTH ---
PATIENT: Elena Ratliff LOC: [facility] U#:[id number] AGE/SX: 28/F ROOM: RE04/08/[address]: Rosio Cruz DO : 1995 BED: DIS: 04/08/2024 SPEC #: [id number] RECD: 04/08/24 18:26 STATUS: DANNY REQ #: [id number] СВЕТЛАНА: 04/08/24 15:[address]: Rosio Cruz DEPT: [facility] Cytology RECD BY: Kay Dawson ENTERED: 04/08/24 18:26 SP TYPE: PAPFT OTHR DR: Stephanie Greene Tissues: 1 - CX/ENDOCX FOR PAP SMEARS Procedures: PAP THIN PREP/[facility] Screening HPV DNA PROBE Comments: [id number] (HPV 16 & 18/45)
== END 2024-04-08 15:55 | disposition home or self-care (01) ==
LOC: LBN 15:54
PROVIDERS: PCP Nurse Practitioner Family; Visit Provider Obstetrics & Gynecology
DX: Z12.4 Encounter for screening for malignant neoplasm of cervix (principal)
CPT/HCPCS: 88142; 87624

== ENCOUNTER 2024-06-16 11:28 | Outpatient (CLI) | payer OTHER, SELFPAY ==
--- NOTE | 2024-06-16 | DI.RAD_ITS ---
Exam(s) XR CHEST 2V PA LATERAL EXAM: XR CHEST 2V PA LATERAL CLINICAL HISTORY: PERSISTANT COUGH. TECHNIQUE: 2D digital imaging was performed. COMPARISON: No exams were available for comparison FINDINGS: 2 views: Heart size is normal. The mediastinum is not widened. Lungs are clear. No infiltrates nor pleural effusions. IMPRESSION: No acute pulmonary findings. DATA REPOSITORY: RADIATION DOSE DELIVERED:
== END 2024-06-16 11:48 ==
LOC: DI 11:30
PROVIDERS: Visit Provider Nurse Practitioner Family
DX: R05.8 Other specified cough (principal)
CPT/HCPCS: 71046

== ENCOUNTER 2024-08-05 08:03 | Outpatient (CLI) | payer OTHER, SELFPAY ==
[2024-08-05 08:06] LABS: Abs Immature Grans 0.02 10^3/uL (0.0-0.06); Absolute Basophil Count 0.03 10^3/uL (0.0-0.2); Absolute Eosinophil Count 0.09 10^3/uL (0.0-0.7); Absolute Lymphocyte Count 1.84 10^3/uL (1.2-3.4); Absolute Neutrophil Count 5.41 10^3/uL (1.2-6.7); Basophils % 0.4 %; Eosinophils % 1.1 %; HCT 41.9 % (36.0-46.0); Immature Grans % 0.2 %; Lymphocytes % 22.7 %; MCH 29.2 pg (27.0-33.0); MCHC 33.4 % (32.0-36.0); MCV 88 fL (80-95); MPV 9.6 fL (8.0-11.0); Monocytes % 8.7 %; Neutrophils % 66.9 %; Platelet Count 196 10^3/uL (130-400); RBC 4.79 10^6/uL (3.93-5.22); RDW 13.1 % (11.7-14.6); RDW-SD 41.5 fL; WBC 8.09 10^3/uL (4.4-10.8)
[2024-08-05 08:58] LABS: ALT 17 U/L (14-59); AST 10 U/L (15-37); Alkaline Phosphatase 56 U/L (46-116); Anion Gap 8.3 mmol/L (3-11); BUN 17 mg/dL (7-18); Bilirubin, Direct 0.1 mg/dL (0.0-0.2); Bilirubin, Total 0.41 mg/dL (0.2-1.0); CO2 27.7 mmol/L (21.0-32.0); CREATININE 0.8 mg/dL (0.55-1.02); Calcium 9.1 mg/dL (8.5-10.1); Calculated LDL 146 mg/dL (<100); Chloride 107 mmol/L (98-107); Cholesterol 206 mg/dL (<200); Estimated GFR 102.86 (mL/min/1.73m2); Glucose 86 mg/dL (74-106); HDL Cholesterol 49 mg/dL (40-60); Potassium 4.1 mmol/L (3.5-5.1); Sodium 143 mmol/L (136-145); TSH (W/Ref FT4) 1.42 uIU/mL (0.36-3.74); Total Protein 7.4 g/dL (6.4-8.2); Triglyceride 59 mg/dL (<150)
== END 2024-08-05 08:04 | disposition home or self-care (01) ==
LOC: LBO 08:03
PROVIDERS: Visit Provider Nurse Practitioner Family
DX: E66.9 Obesity, unspecified (principal); E78.5 Hyperlipidemia, unspecified
CPT/HCPCS: 36415; 80053; 80061; 80076; 84443; 85025

== ENCOUNTER 2024-10-21 02:06 | Outpatient (CLI) | payer OTHER, SELFPAY ==
--- NOTE | 2024-10-21 | DI.RAD_ITS ---
Exam(s) XR CHEST 2V PA LATERAL EXAM: XR CHEST 2V PA LATERAL CLINICAL HISTORY: ACUTE UPPER RESP INF,j06.9 TECHNIQUE: 2D digital imaging was performed. Two views. COMPARISON: CR XR CHEST 2V PA LATERAL from 06/16/2024 FINDINGS: HEART: Normal size. Aorta: Not dilated. PULMONARY VASCULATURE: Normal. MEDIASTINUM: Unremarkable. LUNGS: Clear. PLEURAL SPACE: No pleural effusion or pneumothorax. BONE:Unremarkable for age. SOFT TISSUES: Unremarkable. IMPRESSION: No acute abnormality. DATA REPOSITORY: RADIATION DOSE DELIVERED:
--- NOTE | 2024-10-21 | DI.CT_ITS ---
Exam(s) CT SINUS WO EXAM: CT SINUS WO CLINICAL HISTORY: ACUTE SINUSITIS,j01.90,ACUTE URI,J06.9. Evaluate for sinusitis. TECHNIQUE: Imaging Protocol: Axial computed tomography images with coronal and sagittal reformatted images were created and reviewed. COMPARISON: No exams were available for comparison FINDINGS: Frontal sinuses: Normally aerated. Ethmoid air cells: Normally aerated. Maxillary sinuses: Minimal mucosal thickening. Sphenoid sinuses: Normally aerated. Ostiomeatal complexes: Patent. Nasal cavity: Septum is midline. Visualized regional soft tissues: No acute findings. Orbits: Unremarkable. Bones: Unremarkable. Mastoid Air Cells: Normally aerated. Visualized portions of the brain: Unremarkable as visualized. IMPRESSION: Mild mucosal thickening of the maxillary sinuses. No evidence of acute sinusitis. RADIATION DOSE DELIVERED: 94.96mGy.cm Total DLP DATA REPOSITORY: All CT scans at this facility are submitted to the National Radiology Data Registry (NRDR) Dose Index Registry (DIR) with the [employer] (ACR). RADIATION OPTIMIZATION: All CT scans at this facility use at least one of these dose optimization te chniques: automated exposure control; mA and/or kV adjustment per patient size (includes targeted exa ms where dose is matched to clinical indication); or iterative reconstruction.
== END 2024-10-21 02:26 ==
PROVIDERS: PCP Nurse Practitioner Family; Visit Provider Nurse Practitioner Family
DX: J06.9 Acute upper respiratory infection, unspecified
CPT/HCPCS: 70486; 71046

== ENCOUNTER 2025-02-02 15:53 | Outpatient (REF) | payer OTHER, SELFPAY ==
--- NOTE | 2025-02-02 15:30 | LABIA_PTH ---
PATIENT: Elena Ratliff LOC: [facility] U#:[id number] AGE/SX: 29/F ROOM: RE02/02/[address]: Mikayla Cid NP : 1995 BED: DIS: 02/02/2025 SPEC #: [id number] RECD: 02/02/25 17:32 STATUS: DANNY REMisa #: [id number] СВЕТЛАНА: 02/02/25 15:[address]: Palak DO,Mikayla DEPT: Surgical Specimen RECD BY: Kay Dawson ENTERED: 02/02/25 17:32 SP TYPE: LABIA OTHR DR: Laverne Lawler, DOLL SURGEON Tissues: 1 - LABIA BX Procedures: GROSS AND MICRO LEVEL 3 Comments: [id number]
== END 2025-02-02 15:54 | disposition home or self-care (01) ==
LOC: LBN 15:53
PROVIDERS: PCP Nurse Practitioner Family; Visit Provider Nurse Practitioner Women's Health
DX: N90.89 Other specified noninflammatory disorders of vulva and perineum (principal); L91.8 Other hypertrophic disorders of the skin
CPT/HCPCS: 88305; 88304

== ENCOUNTER 2025-02-17 13:42 | Outpatient (CLI) | payer OTHER, SELFPAY ==
[2025-02-17 14:52] LABS: Anion Gap 7.5 mmol/L (3-11); BUN 14 mg/dL (7-18); CO2 28.5 mmol/L (21.0-32.0); CREATININE 0.8 mg/dL (0.55-1.02); Calcium 8.9 mg/dL (8.5-10.1); Chloride 106 mmol/L (98-107); Estimated GFR 102.22 (mL/min/1.73m2); Glucose 88 mg/dL (74-106); Potassium 3.9 mmol/L (3.5-5.1); Sodium 142 mmol/L (136-145); Uric Acid 4.1 mg/dL (2.6-6.0)
== END 2025-02-17 13:43 | disposition home or self-care (01) ==
LOC: LBO 13:42
PROVIDERS: PCP Nurse Practitioner Family; Visit Provider Nurse Practitioner Family
DX: M79.645 Pain in left finger(s) (principal)
CPT/HCPCS: 36415; 80048; 84550

== ENCOUNTER 2025-02-17 13:57 | Outpatient (CLI) | payer OTHER, SELFPAY ==
--- NOTE | 2025-02-17 13:45 | DI.RAD_ITS ---
Exam(s) XR THUMB LT EXAM: XR THUMB LT CLINICAL HISTORY: left thumb pain. TECHNIQUE: 2D digital imaging was performed. Three views. COMPARISON: None. FINDINGS: BONES: No acute fracture is present. No bony destructive lesion is seen. JOINTS: No dislocation present. Joint spaces are maintained. SOFT TISSUE: Normal. IMPRESSION: No evidence of acute fracture, dislocation, or subluxation. DATA REPOSITORY: RADIATION DOSE DELIVERED:
== END 2025-02-17 14:17 ==
PROVIDERS: PCP Nurse Practitioner Family; Visit Provider Nurse Practitioner Family
DX: M79.645 Pain in left finger(s) (principal)
CPT/HCPCS: 73140